=== PATIENT | female | born 1960 | race Caucasian/White ===

== ENCOUNTER 2018-05-26 06:20 | Day surgery (SDC) | payer OTHER ==
[2018-05-26] MEDS ORDERED: Ringers Lactate 1,000 ML IV ONE (07:13)
[2018-05-26] MEDS ORDERED: LIDOCAINE 1% MPF 5 ML VIAL ONE (07:44)
[2018-05-26] MEDS ORDERED: PROPOFOL 200 MG/20 ML VIAL IV ONE (07:44)
--- NOTE | 2018-05-26 08:37 | ENDO RPT ---
[address], [address] COLONOSCOPY PROCEDURE REPORT EXAM DATE: 05/26/2018 PATIENT NAME: Nkechi Busby MR #: [id number] BIRTHDATE: 1960 ATTENDING: Sushil Francis Dr STATUS: outpatient GEOPHYSICAL SUPPORT SPECIALIST: Moira Evans, Azucena Muniz RN, and Lucy Evans INDICATIONS: The patient is a 57 yr old Female here for a colonoscopy due to follow-up of Crohn's disease PROCEDURE PERFORMED: Colonoscopy with biopsy - cold polypectomy and Colonoscopy with biopsy MEDICATIONS: Per Anesthesia. ESTIMATED BLOOD LOSS: None CONSENT: The patient understands the risks and benefits of the procedure and understands that these risks include, but are not limited to: sedation, allergic reaction, infection, perforation and/or bleeding. Alternative means of evaluation and treatment include, among others: physical exam, x-rays, and/or surgical intervention. The patient elects to proceed with this endoscopic procedure. DESCRIPTION OF PROCEDURE: During intra-op preparation period all mechanical medical equipment was checked for proper function. Hand hygiene and appropriate measures for infection prevention was taken. Procedure, possible complications, alternatives including, but not limited to possibility of bleeding, perforation, tear, infection, sepsis, need for surgery, need for blood transfusion, were explained to the patient. After the risks, benefits and alternatives of the procedure were thoroughly explained, Informed consent was verified, confirmed and timeout was successfully executed by the treatment team. The patient was placed in the left lateral position. A digital rectal exam was performed and revealed no abnormalities of the rectum. After appropriate level of anesthesia, the scope was passed. The [id number] ([id number]) endoscope was introduced through the anus and advanced to the terminal ileum which was intubated for a short distance. The quality of the prep was good. The instrument was then slowly withdrawn as the colon was fully examined. Scope withdrawal time was 8 minutes. COLON FINDINGS: A sessile polyp measuring 3 mm in size was found at the cecum. A polypectomy was performed with cold forceps. Mild diverticulosis was noted in the sigmoid colon. Random biopsies of the terminal ileum / right colon / left colon / rectum obtained with history of Crohn's disease. Moderate sized internal hemorrhoids were found. Retroflexed views revealed medium hemorrhoids. The scope was then completely withdrawn from the patient and the procedure terminated. ADVERSE EVENTS: There were no complications. IMPRESSIONS: 1. 3 mm sessile polyp in the cecum; polypectomy was performed with cold forceps 2. Mild diverticulosis in the sigmoid colon 3. Moderate sized internal hemorrhoids 4. Random biopsies of the terminal ileum / right colon / left colon / rectum obtained with history of Crohn's disease 5. Intubation to terminal ileum RECOMMENDATIONS: 1. await biopsy results 2. avoid NSAIDS RECALL: Return in 2 year(s) for Colonoscopy. Sushil Francis Dr eSigned: Sushil Francis Dr 05/26/2018 8:24 AM cc: Bk Alvarez CPT CODES: ICD9 CODES: 211.3 Benign neoplasm of colon PATIENT NAME: Nkechi Busby MR#: [id number]
== END 2018-05-26 09:00 | disposition home or self-care (01) ==
LOC: OR 06:20
PROVIDERS: ATTEND Internal Medicine Gastroenterology
PROC: 0DBP8ZX Excision of Rectum, Via Natural or Artificial Opening Endoscopic, Diagnostic (ICD-10-PCS; 2018-05-26)
PROC: 0DBB8ZX Excision of Ileum, Via Natural or Artificial Opening Endoscopic, Diagnostic (ICD-10-PCS; 2018-05-26)
PROC: 0DBM8ZX Excision of Descending Colon, Via Natural or Artificial Opening Endoscopic, Diagnostic (ICD-10-PCS; 2018-05-26)
PROC: 0DBH8ZX Excision of Cecum, Via Natural or Artificial Opening Endoscopic, Diagnostic (ICD-10-PCS; 2018-05-26)
PROC: 0DBK8ZX Excision of Ascending Colon, Via Natural or Artificial Opening Endoscopic, Diagnostic (ICD-10-PCS; principal; 2018-05-26 08:00)
DX: K50.90 Crohn's disease, unspecified, without complications (principal); Z86.010 Personal history of colon polyps; K76.0 Fatty (change of) liver, not elsewhere classified; I10 Essential (primary) hypertension
CPT/HCPCS: 88305; J2704

== ENCOUNTER 2020-02-14 09:59 | Emergency (ER) | payer OTHER ==
--- OUTSIDE RECORDS SUMMARY | 2020-02-14 11:02 | XMS REPORT ---
:1960 Author Organization eClinicalWorks Care Team Providers Name Role Phone Jamie Whaley Provider Role Unavailable Allergies, Adverse Reactions, Alerts Substance Reaction Event Type Sulfa Info Not Available Drug Allergy Problems Problem Type Condition Code Onset Dates Condition Statu s Assessment Pain in joint of left knee M25.562 A ctive Problem Primary osteoarthritis of left knee M17.12 Active Assessment Primary osteoarthritis of left knee M17.12 Active Medications Medication Code System Code Instructions Start End Date Status Dos age Date Pentasa [facility] 37522-279 Active not defined 1-12 Meloxicam [facility] 32950-933 Active not defined 1-01 Lisinopril-Hydroc [facility] 09391-276 Active not defined hlorothiazide 0-01 Folic Acid [facility] 37698-249 Active not defined 0-01 Methotrexate [facility] 46979-948 Active not defin ed 1-01 Results No Known Results Summary Purpose eClinicalWorks Submission
--- OUTSIDE RECORDS SUMMARY | 2020-02-14 11:02 | XMS REPORT | Continuity of Care Document ---
:1960 Author Organization [facility] t Address [address] [place] [address] Care Team Providers Name Role Phone Unavailable Unavailable Unavailable Problems Condition Condition Condition Status Onset Resolution Last Treating Co mments Source Name Details Category Date Date Treatment Clinician Date Primary Primary Problem Active [facility] Primary Primary Diagnosis [facility] Allergies, Adverse Reactions, Alerts Allergy Allergy Status Severity Reaction(s) Onset Inactive Treating Comm ents Source Name Type Date Date Clinician Sulfa Adverse Active Info Not [facility] Reaction Available [facility] Medications Ordered Filled Start Stop Current Ordering Indication Dosage Frequency Signature Comments Components Source Medication Medication Date Date Medication? Clinician (SIG) Name Name Methotrexat Methotrexat Yes Jamie not [facility] Whaley defined [facility] Lisinopril- Lisinopril- Yes Jamie not [facility] Hydrochloro Hydrochloro Whaley defined [facility] Pentasa Pentasa Yes Jamie not [facility] Whaley [facility] Folic Acid Folic Acid Yes Jamie not [facility] Meloxicam Meloxicam Yes Jamie not [facility] Procedures This patient has no known procedures. Encounters Start End Encounter Admission Attending Care Care Encounter Source Date/Time Date/Time Type Type Clinicians Facility Department ID 2020-01-25 2020-01-25 [facility] [id number] [facility] 15:23[facility] 15[facility]23[facility] 2020-01-18 2020-01-18 [facility] [id number] [facility] 08:30:00 08:30:00 [facility] 2019-12-30 2019-12-30 [facility] [id number] [facility] 14:15:00 14:15:00 [facility] 2019-12-23 2019-12-23 [facility] [id number] [facility] [address] 11:00:00 11:00:00 [facility] 2019-12-16 2019-12-16 [facility] [id number] [facility] 13:30:00 13:30:00 [facility] 2019-11-16 2019-11-16 [facility] [id number] [facility] 09:30:00 09:30:00 [facility] 2019-11-11 2019-11-11 [facility] [id number] [facility] 08:23:00 08:23:00 [facility] 2019-11-01 2019-11-01 [facility] [id number] [facility] 15:38:00 15:38:00 [facility] 2019-10-21 2019-10-21 [facility] [id number] [facility] 08:00:00 08:00:00 [facility] 2019-08-20 2019-08-20 [facility] [id number] [facility] 08[facility]30:00 08:30:00 [facility] 2019-08-05 2019-08-05 Outpatient Milena Fuchs [id number] [facility] 10:27:00 10:27:00 [facility] 2019-08-03 2019-08-03 Outpatient Milena Fuchs [id number] [facility] 10:30:00 10:30:00 [facility] 2019-04-08 2019-04-08 Outpatient Milena Fuchs [id number] [facility] 09:00:00 09:00:00 [facility] Results This patient has no known results.
--- OUTSIDE RECORDS SUMMARY | 2020-02-14 11:02 | XMS REPORT ---
:1960 Author Organization eClinicalWorks Care Team Providers Name Role Phone Jamie Whaley Provider Role Unavailable Allergies, Adverse Reactions, Alerts Substance Reaction Event Type Sulfa Info Not Available Drug Allergy Problems Problem Type Condition Code Onset Dates Condition Statu s Assessment Pain in joint of left knee M25.562 A ctive Problem Primary osteoarthritis of left M17.12 Active knee Assessment Primary osteoarthritis of left M17.12 Active knee Assessment Complex tear of lateral meniscus S83.272A Active of left knee as current injury, initial encounter Medications Medication Code System Code Instructions Start End Date Status Dos age Date Lisinopril-Hydroc [facility] 19390-943 Active not defined hlorothiazide 0-01 Folic Acid [facility] 02065-688 Active not defined 0-01 Methotrexate [facility] 69170-400 Active not defin ed 1-01 Pentasa [facility] 51389-684 Active not defined 1-12 Results No Known Results Summary Purpose [employer] Submission
--- OUTSIDE RECORDS SUMMARY | 2020-02-14 11:02 | XMS REPORT ---
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 knee Assessment Pain in joint of right knee M25.561 Active Assessment Primary osteoarthritis of right M17.11 Active knee Medications Medication Code System Code Instructions Start End Date Status Dos age Date Methotrexate [facility] 28384-623 Active not defin ed 1-01 Pentasa [facility] 56534-931 Active not defined 1-12 Lisinopril-Hydroc [facility] 14413-091 Active not defined hlorothiazide 0-01 Folic Acid [facility] 97299-644 Active not defined 0-01 Meloxicam [facility] 37340-727 Active not defined 1-01 Results No Known Results Summary Purpose eClinicalWorks Submission
--- OUTSIDE RECORDS SUMMARY | 2020-02-14 11:02 | XMS REPORT ---
[...] End Date Status Dos age Date Pentasa [facility] 54477-900 Active not defined 1-12 Lisinopril-Hydroc [facility] 69584-657 Active not defined hlorothiazide 0-01 Methotrexate [facility] 44853-733 Active not defin ed 1-01 Meloxicam [facility] 07735-660 Active not defined 1-01 Folic Acid [facility] 03343-235 Active not defined 0-01 Results No Known Results Summary Purpose eClinicalWorks Submission
--- OUTSIDE RECORDS SUMMARY | 2020-02-14 11:02 | XMS REPORT ---
:1960 Author Organization eClinicalWorks Care Team Providers Name Role Phone Jamie Whaley Provider Role Unavailable Allergies No Known Allergies Problems Problem Type Condition Code Onset Dates Condition Statu s Problem Primary osteoarthritis of left knee M17.12 Active Problem Primary osteoarthritis of right knee M17.11 Active Assessment Primary osteoarthritis of right knee M17.11 Active Medications No Known Medications Results No Known Results Summary Purpose eClinicalWorks Submission
--- OUTSIDE RECORDS SUMMARY | 2020-02-14 11:02 | XMS REPORT ---
[...] End Date Status Dos age Date Pentasa [facility] 14164-227 Active not defined 1-12 Methotrexate [facility] 03005-162 Active not defin ed 1-01 Meloxicam [facility] 02951-494 Active not defined 1-01 Lisinopril-Hydroc [facility] 21758-342 Active not defined hlorothiazide 0-01 Folic Acid [facility] 59833-329 Active not defined 0-01 Results No Known Results Summary Purpose eClinicalWorks Submission
[2020-02-14] MEDS ORDERED: HYDROCODONE/APAP 5/325 MG TAB ONE (12:37)
--- NOTE | 2020-02-14 13:22 | RAD REPORT ---
EXAM DESCRIPTION: USExtrembarbara Venous [facility] Ltd02/14/2020 12:57 pm CLINICAL HISTORY: Right leg pain and swelling. COMPARISON: None. FINDINGS: Right common femoral, superficial femoral, popliteal and right posterior tibial veins are compressible and demonstrate augmentation. Doppler demonstrates good flow. IMPRESSION: No evidence of deep venous thrombosis involving the right lower extremity.
--- NOTE | 2020-02-14 13:32 | EDPHYS ---
Physician Documentation [facility] Name: Nkechi Busby Age: 59 yrs Sex: Female : 1960 Arrival Date: 02/14/2020 Time: 10:00 Bed 17 Private MD: Jose Cool R ED Physician Goyo Hollingsworth HPI: 02/13 12:57 This 59 yrs old Female presents to ER via Ambulatory with complaints of Knee snw Pain, Knee Swelling. 12:57 The patient presents with decreased range of motion, pain, a rash, swelling. The snw complaints affect the right knee. Context: The problem was sustained at home, resulted from an unknown cause, the patient can partially bear weight, Problem is a result from a previous injury: awaiting knee injections for tx chronic knee pain. Onset: The symptoms/episode began/occurred suddenly. Modifying factors: The symptoms are alleviated by nothing. Associated signs and symptoms: Pertinent positives: swelling, warmth. Severity of symptoms: At their worst the symptoms were very mild. The patient has not experienced similar symptoms in the past. The patient has been recently seen by a physician: Sees Dr. Whaley and Dr. Cool. Recent MRI right knee. Historical: - Allergies: 10:29 Sulfa (Sulfonamide Antibiotics); aa5 - PMHx: 10:29 crohns disease; Hypertension; aa5 - PSHx: 10:29 Cholecystectomy; partial hysterectomy; aa5 - Immunization history:: Adult Immunizations. - Social history:: Smoking status: . ROS: 12:56 Constitutional: Negative for fever, chills, and weight loss, Eyes: Negative for injury, snw pain, redness, and discharge, ENT: Negative for injury, pain, and discharge, Neck: Negative for injury, pain, and swelling, Cardiovascular: Negative for chest pain, palpitations, and edema, Respiratory: Negative for shortness of breath, cough, wheezing, and pleuritic chest pain, Abdomen/GI: Negative for abdominal pain, nausea, vomiting, diarrhea, and constipation, Back: Negative for injury and pain, : Negative for injury, bleeding, discharge, and swelling, Skin: Negative for injury, rash, and discoloration, Neuro: Negative for headache, weakness, numbness, tingling, and seizure, Psych: Negative for depression, anxiety, suicide ideation, homicidal ideation, and hallucinations. 12:56 MS/extremity: Positive for pain, swelling, of the right knee. Exam: 12:54 Constitutional: This is a well developed, well nourished patient who is awake, alert, snw and in no acute distress. Head/Face: Normocephalic, atraumatic. Eyes: Pupils equal round and reactive to light, extra-ocular motions intact. Lids and lashes normal. Conjunctiva and sclera are non-icteric and not injected. Cornea within normal limits. Periorbital areas with no swelling, redness, or edema. ENT: Nares patent. No nasal discharge, no septal abnormalities noted. Tympanic membranes are normal and external auditory canals are clear. Oropharynx with no redness, swelling, or masses, exudates, or evidence of obstruction, uvula midline. Mucous membranes moist. Neck: Trachea midline, no thyromegaly or masses palpated, and no cervical lymphadenopathy. Supple, full range of motion without nuchal rigidity, or vertebral point tenderness. No Meningismus. Chest/axilla: Normal chest wall appearance and motion. Nontender with no deformity. No lesions are appreciated. Cardiovascular: Regular rate and rhythm with a normal S1 and S2. No gallops, murmurs, or rubs. Normal PMI, no JVD. No pulse deficits. Respiratory: Lungs have equal breath sounds bilaterally, clear to auscultation and percussion. No rales, rhonchi or wheezes noted. No increased work of breathing, no retractions or nasal flaring. Abdomen/GI: Soft, non-tender, with normal bowel sounds. No distension or tympany. No guarding or rebound. No evidence of tenderness throughout. Back: No spinal tenderness. No costovertebral tenderness. Full range of motion. MS/ Extremity: Pulses equal, no cyanosis. Neurovascular intact. Full, normal range of motion. Neuro: Awake and alert, GCS 15, oriented to person, place, time, and situation. Cranial nerves II-XII grossly intact. Motor strength 5/5 in all extremities. Sensory grossly intact. Cerebellar exam normal. Normal gait. Psych: Awake, alert, with orientation to person, place and time. Behavior, mood, and affect are within normal limits. 12:54 Skin: Appearance: normal except for affected area, skin overlying right knee with a patterned area of erythema, tenderness, no erythema. Vital Signs: 10:30 BP 123 / 87; Pulse 77; Resp 18 S; Temp 97.5(TE); Pulse Ox 98% on R/A; Weight 104.33 kg aa5 (R); Height 5 ft. 2 in. (157.48 cm) (R); Pain 0/10; 13:38 BP 119 / 75; Pulse 63; Resp 17; Pulse Ox 95% on R/A; tw2 10:30 Body Mass Index 42.07 (104.33 kg, 157.48 cm) aa5 MDM: 12:16 Patient medically screened. snw 13:33 Data reviewed: vital signs, nurses notes. Data interpreted: Pulse oximetry: on room air snw is 98 %. Interpretation: normal. Counseling: I had a detailed discussion with the patient and/or guardian regarding: the historical points, exam findings, and any diagnostic results supporting the discharge/admit diagnosis, radiology results, the need for outpatient follow up, to return to the emergency department if symptoms worsen or persist or if there are any questions or concerns that arise at home. Special discussion: Based on the history and exam findings, there is no indication for further emergent testing or inpatient evaluation. I discussed with the patient/guardian the need to see the orthopedic surgeon for further evaluation of the symptoms. I discussed with the patient/guardian the need to see the primary care provider for further evaluation of the symptoms. 02/13 12:21 Order name: US Extremity Venous Unilateral Ltd; Complete Time: 13:29 snw 02/13 13:51 Order name: [place] wrap-joint; Complete Time: 13:58 snw Administered Medications: 12:28 Drug: [place] 5 mg-325 mg 1 tabs Route: PO; tw2 13:38 Follow up: Response: No adverse reaction; Pain is unchanged, physician notified; RASS: tw2 Alert and Calm (0) Disposition: 16:24 Co-signature as Attending Physician, Goyo Hollingsworth MD. rn Disposition: 02/14/20 13:31 Discharged to Home. Impression: Pain in right knee, Rash and other nonspecific skin eruption. - Condition is Stable. - Discharge Instructions: Joint Pain, Rash, Knee Pain, Heat Therapy. - Prescriptions for orphenadrine citrate 100 mg Oral Tablet Sustained Release - take 1 tablet by ORAL route 2 times per day As needed; 20 tablet. - Medication Reconciliation Form, Thank You Letter, Antibiotic Education, Prescription Opioid Use form. - Follow up: Jose Cool MD; When: 2 - 3 days; Reason: Recheck today's complaints, Continuance of care, Re-evaluation by your physician. Signatures: Dispatcher [employer] EDMS Alida Christian, PLASTIC STRAIGHTENING ROLL OPERATOR-C PLASTIC STRAIGHTENING ROLL OPERATOR-Csnw Goyo Hollingsworth MD MD rn Calderon, Audri RN RN aa5 Kya Salinas RN RN tw2 Corrections: (The following items were deleted from the chart) 13:59 13:31 02/14/2020 13:31 Discharged to Home. Impression: Pain in right knee; Rash and tw2 other nonspecific skin eruption. Condition is Stable. Forms are Medication Reconciliation Form, Thank You Letter, Antibiotic Education, Prescription Opioid Use. Follow up: Jose Cool; When: 2 - 3 days; Reason: Recheck today's complaints, Continuance of care, Re-evaluation by your physician. snw
--- NOTE | 2020-02-14 13:32 | ER ---
Nurse's Notes [facility] Name: Nkechi Busby Age: 59 yrs Sex: Female : 1960 Arrival Date: 02/14/2020 Time: 10:00 Bed 17 Private MD: Jose Cool R Diagnosis: Pain in right knee;Rash and other nonspecific skin eruption Presentation: 02/13 10:30 Chief complaint: Patient states: "I have trouble with my knees and they actually did an aa5 MRI recently so the plan is that Dr. Whaley is going to do some gel shots but this morning I noticed a red spot on my right knee and the doctor said to come to the ER". Coronavirus screen: Client denies travel out of the [place] in the last 14 days. At this time, the client does not indicate any symptoms associated with coronavirus-19. Ebola Screen: Patient negative for fever greater than or equal to 101.5 degrees Fahrenheit, and additional compatible Ebola Virus Disease symptoms. Initial Sepsis Screen: Does the patient meet any 2 criteria? No. Patient's initial sepsis screen is negative. Does the patient have a suspected source of infection? No. Patient's initial sepsis screen is negative. Risk Assessment: Do you want to hurt yourself or someone else? Patient reports no desire to harm self or others. Onset of symptoms was February 14, 2020. 10:30 Method Of Arrival: Ambulatory aa5 10:30 Acuity: KONSTANTIN 4 aa5 Historical: - Allergies: 10:29 Sulfa (Sulfonamide Antibiotics); aa5 - PMHx: 10:29 crohns disease; Hypertension; aa5 - PSHx: 10:29 Cholecystectomy; partial hysterectomy; aa5 - Immunization history:: Adult Immunizations. - Social history:: Smoking status: . Screenin:40 Abuse screen: Denies threats or abuse. Nutritional screening: No deficits noted. tw2 Tuberculosis screening: No symptoms or risk factors identified. Fall Risk None identified. Assessment: 11:40 General: Appears in no apparent distress. obese, well groomed, Behavior is calm, tw2 cooperative, appropriate for age. Pain: Complains of pain in right knee. Neuro: Level of Consciousness is awake, alert, obeys commands, Oriented to person, place, time, situation. Cardiovascular: Capillary refill < 3 seconds Patient's skin is warm and dry. Respiratory: Airway is patent Respiratory effort is even, unlabored, Respiratory pattern is regular. GI: No signs and/or symptoms were reported involving the gastrointestinal system. : No signs and/or symptoms were reported regarding the genitourinary system. EENT: No signs and/or symptoms were reported regarding the EENT system. Derm: No signs and/or symptoms reported regarding the dermatologic system. Musculoskeletal: Circulation, motion, and sensation intact. Range of motion: intact in all extremities, Reports pain in right knee. 12:38 Reassessment: Patient appears in no apparent distress at this time. No changes from tw2 previously documented assessment. Patient and/or family updated on plan of care and expected duration. Pain level reassessed. Patient is alert, oriented x 3, equal unlabored respirations, skin warm/dry/pink. 13:38 Reassessment: Patient appears in no apparent distress at this time. No changes from tw2 previously documented assessment. Patient and/or family updated on plan of care and expected duration. Pain level reassessed. Patient is alert, oriented x 3, equal unlabored respirations, skin warm/dry/pink. Patient states symptoms have not improved. 13:58 Reassessment: Patient appears in no apparent distress at this time. No changes from tw2 previously documented assessment. Patient and/or family updated on plan of care and expected duration. Pain level reassessed. Patient is alert, oriented x 3, equal unlabored respirations, skin warm/dry/pink. Vital Signs: 10:30 BP 123 / 87; Pulse 77; Resp 18 S; Temp 97.5(TE); Pulse Ox 98% on R/A; Weight 104.33 kg aa5 (R); Height 5 ft. 2 in. (157.48 cm) (R); Pain 0/10; 13:38 BP 119 / 75; Pulse 63; Resp 17; Pulse Ox 95% on R/A; tw2 10:30 Body Mass Index 42.07 (104.33 kg, 157.48 cm) aa5 ED Course: 10:00 Patient arrived in ED. ag5 10:00 Jose Cool MD is Private Physician. ag5 10:29 Arm band placed on. aa5 10:33 Triage completed. aa5 11:39 Alida Christian F[facility]-C [facility]. snw 11:39 Goyo Hollingsworth MD is Attending Physician. snw 11:40 Kay Salinas, RN is Primary Nurse. tw2 11:40 Bed in low position. Call light in reach. tw2 12:57 US Extremity Venous Unilateral Ltd In Process Unspecified. EDMS 13:31 Jose Cool MD is Referral Physician. snw 13:40 Awaiting: results from provider at this time prior to discharge. tw2 13:59 No provider procedures requiring assistance completed. Patient did not have IV access tw2 during this emergency room visit. Administered Medications: 12:28 Drug: [place] 5 mg-325 mg 1 tabs Route: PO; tw2 13:38 Follow up: Response: No adverse reaction; Pain is unchanged, physician notified; RASS: tw2 Alert and Calm (0) Outcome: 13:31 Discharge ordered by MD. snw 13:59 Discharged to home via wheelchair. tw2 13:59 Condition: stable 13:59 Discharge instructions given to patient, Instructed on discharge instructions, follow up and referral plans. medication usage, Demonstrated understanding of instructions, follow-up care, medications, [facility] checks Prescriptions given X 1. 13:59 Patient left the ED. tw2 Signatures: Dispatcher [employer] EDAR Alida Christian FNP-C COLD WORK OPERATOR-Csnw Vera Mooney, RN RN aa5 Kay Salinas, RN RN tw2 Margaret Whitmore ag5 Corrections: (The following items were deleted from the chart) 13:39 13:38 Reassessment: Patient appears in no apparent distress at this time. No changes tw2 from previously documented assessment. Patient and/or family updated on plan of care and expected duration. Pain level reassessed. Patient is alert, oriented x 3, equal unlabored respirations, skin warm/dry/pink. tw2
== END 2020-02-14 13:59 | disposition home or self-care (01) ==
LOC: ER 09:59
DX: R21 Rash and other nonspecific skin eruption (principal); I10 Essential (primary) hypertension; Z88.2 Allergy status to sulfonamides
CPT/HCPCS: 93971; 99283

== ENCOUNTER 2020-05-04 13:24 | Emergency (ER) | payer OTHER ==
--- OUTSIDE RECORDS SUMMARY | 2020-05-04 13:38 | XMS REPORT | Continuity of Care Document ---
:1960 Author Organization [facility] t Address [address] [place] [address] Care Team Providers Name Role Phone Unavailable Unavailable Unavailable Problems This patient has no known problems. Allergies, Adverse Reactions, Alerts Allergy Allergy Status [...] Date/Time Type Type Clinicians Facility Department ID 2020-03-28 2020-03-28 Outpatient [facility] [id number] [facility] 2020-03-21 2020-03-21 Outpatient [facility] [id number] [facility] 2020-03-14 2020-03-14 Outpatient [facility] [id number] [facility] 2020-02-08 2020-02-08 [facility] [id number] [facility] 12:34[facility]00 12:34[facility]00 [facility] 2020-01-25 2020-01-25 [facility] [id number] 15:23:00 15:23:00 [facility] 2020-01-18 2020-01-18 [facility] [id number] [facility] 08:30:00 08:30:00 [facility] 2019-12-30 2019-12-30 [facility] [id number] 14:15:00 14:15:00 [facility] 2019-12-23 2019-12-23 [facility] [id number] 11:00:00 11:00:00 [facility] 2019-12-16 2019-12-16 [facility] [id number] 13:30:00 13:30:00 [facility] 2019-11-16 2019-11-16 [facility] [id number] 09:30:00 09:30:00 [facility] 2019-11-11 2019-11-11 [facility] [id number] 08[facility]23:00 08:23:00 [facility] 2019-11-01 2019-11-01 [facility] [id number] 15:38:00 15:38:00 [facility] 2019-10-21 2019-10-21 [facility] [id number] 08:00:00 08:00:00 [facility] 2019-08-20 2019-08-20 [facility] [id number] 08:30:00 08:30:00 [facility] 2019-08-05 2019-08-05 [facility] [id number] 10:27:00 10:27:00 [facility] 2019-08-03 2019-08-03 [facility] [id number] 10:30:00 10:30:00 [facility] 2019-04-08 2019-04-08 [facility] [id number] 09:00:00 09:00:00 [facility] Results This patient has no known results.
--- OUTSIDE RECORDS SUMMARY | 2020-05-04 13:38 | XMS REPORT ---
:1960 Author Organization [facility] Address [address], [facility] [address] [place] [address] Care Team Providers Name Role Phone Jamie Whaley Unavailable [phone] PROBLEMS Type Condition ICD9-CM [id number] Onset Condition SNOMED Code Notes Code Code Dates Status Problem Primary M17.12 Active 044986576486185 osteoarthritis of left knee Problem Primary M17.11 Active [id number] osteoarthritis of right knee ALLERGIES Allergen (clinical drug Drug/Non Drug Allergy Reaction Allergy Type Onset Date Status ingredient) documented on EMR Sulfa Unknown Drug Allergy Active ENCOUNTERS from 1960 to 2020-04-03 Encounter Location Date Provider Diagnosis [facility] [address] 13 Mar, 2020 Jamie serrato osteoarthritis [facility] [address] of right kne e [address]17.[address] [place] [address] IMMUNIZATIONS Vaccine Route Administration Date Status Hyalgan 20 mg Unknown Mar 21, 2020 Administered Hyalgan 20 mg Unknown Mar 14, 2020 Administered Hyalgan 20 mg Unknown December 30, 2019 Administered Hyalgan 20 mg Unknown December 23, 2019 Administered Hyalgan 20 mg Unknown December 16, 2019 Administered LIDOCAINE HCL 10MG/ML Unknown Feb 25, 2019 Administer ed Hyalgan 20 mg Unknown Mar 28, 2020 Administered Kenalog (Triamcinolone) Unknown Jan 18, 2020 Administ ered Bupivicaine [place] Unknown August 20, 2019 Administered Kenalog (Triamcinolone) Unknown August 20, 2019 Administ ered Bupivicaine [place] Unknown Jan 18, 2020 Administered Kenalog (Triamcinolone) Unknown Feb 25, 2019 Administ ered SOCIAL HISTORY Tobacco Use: Social History Observation Description Date Details (start date - stop date) Former Smoker Sex Assigned At : Social History Observation Description Sex Assigned At Unknown Alcohol Screen Question Answer Notes Did you have a drink containing alcohol in the past year? No Points 0 Interpretation Negative Tobacco Use/Smoking Question Answer Notes Are you a former smoker Additional Findings: Tobacco Non-User Current non-smoker REASON FOR REFERRAL No Information VITAL SIGNS Height 62 in Mar, Weight 229 lbs Mar, BMI 41.88 kg/m2 Mar, Blood pressure systolic 132 mm Hg Mar, Blood pressure diastolic 82 mm Hg Mar, MEDICATIONS Medication SIG (Take, Route, Frequency, Start Date End Date Status Duration) Meloxicam Active Lisinopril-Hydrochlorothiazide Active Folic Acid Active Methotrexate Active Pentasa Active PROCEDURES No Information RESULTS No Results REASON FOR VISIT F/U RT KNEE 3RD HYALGAN MEDICAL (GENERAL) HISTORY Type Description Date Medical History CROHN'S DISEASE Medical History hypertension Surgical History GALLBLADDER Surgical History HYSTRERECTOMY Surgical History NO METAL Goals Section No Information Health Concerns No Information MEDICAL EQUIPMENT No Information MENTAL STATUS No Information FUNCTIONAL STATUS No Information ASSESSMENTS Encounter Date Diagnosis Notes Mar, Primary osteoarthritis of right knee (IC D-10 - M17.11) PLAN OF TREATMENT Treatment Notes Assessment Notes Clinical Notes Primary osteoarthritis of right knee I discussed with the job lagos at length her diagnosis and treatment plan and she expressed understanding. We will proceed with conservative treatment at this time. We discussed weight management, strengthening exercises, NSAIDs use, and corticosteroid/viscosupplementatio n injections. The patient underwent her 3rd right knee hyalgan injection without complication. The patient was instructed to refrain from strenuous activities for the next 24 hours and to ice the area. She will return to clinic as needed. Next Appt Details prn Reason: Insurance Providers Payer Name Payer Payer Insured Patient Coverage Coverage End Address Phone Name Relationship to Start Date Presley e Insured Community [phone] [place],Vi self 2019 [place] [id number] [facility] [id number]
--- OUTSIDE RECORDS SUMMARY | 2020-05-04 13:38 | XMS REPORT ---
:1960 Author Organization [facility] Address [address], [facility] [address] [place] [address] Care Team Providers Name Role Phone Jamie Whaley Unavailable [phone] PROBLEMS Type Condition ICD9-CM [id number] Onset Condition SNOMED Code Notes Code Code Dates Status Problem Primary M17.12 Active [id number] osteoarthritis of left knee Problem Primary M17.11 Active [id number] osteoarthritis of right knee ALLERGIES Allergen (clinical drug Drug/Non Drug Allergy Reaction Allergy Type Onset Date Status ingredient) documented on EMR Sulfa Unknown Drug Allergy Active ENCOUNTERS from 1960 to 2020-03-27 Encounter Location Date Provider Diagnosis [facility] [address] Mar, 2020 Jamie serrato osteoarthritis [facility] [address] of right kne e M17.[address] [place] [address] IMMUNIZATIONS Vaccine Route Administration Date Status Hyalgan 20 mg Unknown Mar 21, 2020 Administered Hyalgan 20 mg Unknown Mar 14, 2020 Administered Hyalgan 20 mg Unknown December 30, 2019 Administered Hyalgan 20 mg Unknown December 23, 2019 Administered Hyalgan 20 mg Unknown December 16, 2019 Administered LIDOCAINE HCL 10MG/ML Unknown Feb 25, 2019 Administer ed Bupivicaine [place] Unknown August 20, 2019 Administered Kenalog (Triamcinolone) Unknown Jan 18, 2020 Administ ered Bupivicaine [place] Unknown Jan 18, 2020 Administered Kenalog (Triamcinolone) Unknown August 20, 2019 Administ ered Kenalog (Triamcinolone) Unknown Feb 25, 2019 Administ ered SOCIAL HISTORY Tobacco Use: Social History Observation Description Date Details (start date - stop date) Former Smoker Sex Assigned At : Social History Observation Description Sex Assigned At Unknown Alcohol Screen Question Answer Notes Did you have a drink containing alcohol in Yes the past year? Points 2 Interpretation Negative How often did you have 6 or more drinks on Never (0 points) one occasion in the past year? How often did you have a drink containing Two to four times a month (2 points) alcohol in the past year? Tobacco Use/Smoking Question Answer Notes Are you a former smoker Additional Findings: Tobacco Non-User Current non-smoker REASON FOR REFERRAL No Information VITAL SIGNS Height 62 in Mar, Weight 229 lbs Mar, Temperature 97.3 degrees Fahrenheit Mar, BMI 41.88 kg/m2 Mar, Blood pressure systolic 120 mm Hg Mar, Blood pressure diastolic 78 mm Hg Mar, MEDICATIONS Medication SIG (Take, Route, Frequency, Start Date End Date Status Duration) Meloxicam Active Lisinopril-Hydrochlorothiazide Active Folic Acid Active Methotrexate Active Pentasa Active PROCEDURES No Information RESULTS No Results REASON FOR VISIT F/U RT KNEE SECOND HYALGAN MEDICAL (GENERAL) HISTORY Type Description Date [...] corticosteroid/viscosupplementatio n injections. The patient underwent her 2nd right knee hyalgan injection without complication. The patient was instructed to refrain from strenuous activities for the next 24 hours and to ice the area. She will return to clinic in 1 week for her 3rd injection of the series. Next Appt Details 1 Week Reason: Provider Name:Jamie Whaley, 2020-03-28 0 3:30:00 PM, [address], [address], [place], [address], Insurance Providers Payer Name Payer Payer Insured Patient Coverage Coverage End Address Phone Name Relationship to Start Date Presley e Insured Community [phone] Anny Jones self [address] [employer] [id number] [facility] [address]
--- OUTSIDE RECORDS SUMMARY | 2020-05-04 13:38 | XMS REPORT ---
:1960 Author Organization [facility] Address [address], [facility] [[email or web address] 1 [place] [address] Care Team Providers Name Role Phone Jamie Whaley Unavailable [phone] PROBLEMS Type Condition ICD9-CM GGC62-GA Onset Condition SNOMED Code Notes Code Code Dates Status Problem Primary M17.12 Active [id number] osteoarthritis of left knee Problem Primary M17.11 Active [id number] osteoarthritis of right knee ALLERGIES Allergen (clinical drug Drug/Non Drug Allergy Reaction Allergy Type Onset Date Status ingredient) documented on EMR Sulfa Unknown Drug Allergy Active ENCOUNTERS from 1960 to 2020-03-16 Encounter Location Date Provider Diagnosis [facility] [address] Feb, Jamie serrato osteoarthritis [facility] [[email or web address] [address] of right kne e [address]17.[address] [place] [address] IMMUNIZATIONS Vaccine Route Administration Date Status Bupivicaine [place] Unknown August 20, 2019 Administered Hyalgan 20 mg Unknown Mar 14, 2020 Administered Hyalgan 20 mg Unknown December 30, 2019 Administered Hyalgan 20 mg Unknown December 23, 2019 Administered Hyalgan 20 mg Unknown December 16, 2019 Administered LIDOCAINE HCL 10MG/ML Unknown Feb 25, 2019 Administer ed Bupivicaine [place] Unknown Jan 18, 2020 Administered Kenalog (Triamcinolone) Unknown Jan 18, 2020 Administ ered Kenalog (Triamcinolone) Unknown August 20, 2019 Administ [...] No Information VITAL SIGNS Height 62 in Feb, Weight 229 lbs Feb, Temperature 97.3 degrees Fahrenheit Feb, BMI 41.88 kg/m2 Feb, Blood pressure systolic 139 mm Hg Feb, Blood pressure diastolic 76 mm Hg Feb, MEDICATIONS Medication SIG (Take, Route, Frequency, Start Date End Date Status Duration) Folic Acid Active Methotrexate Active Lisinopril-Hydrochlorothiazide Active Pentasa Active Meloxicam Active PROCEDURES No Information RESULTS No Results REASON FOR VISIT 1ST HYALGAN INJECTION MEDICAL (GENERAL) HISTORY Type Description Date Medical History CROHN'S DISEASE Medical History hypertension Surgical History GALLBLADDER Surgical History HYSTRERECTOMY Surgical History NO METAL Goals Section No Information Health Concerns No Information MEDICAL EQUIPMENT No Information MENTAL STATUS No Information FUNCTIONAL STATUS No Information ASSESSMENTS Encounter Date Diagnosis Notes Feb, Primary osteoarthritis of right knee (IC D-10 [...] and corticosteroid/viscosupplementatio n injections. The patient underwent right knee hyalgan injection without complication. The patient was instructed to refrain from strenuous activities for the next 24 hours and to ice the area. She will return to clinic in 1 week for her 2nd injection of the series. Next Appt Details 1 Week Reason: Provider Name:Jamie Whaley 2020-03-21 0 3:30:00 PM, [address], [place], [address], Provider Name:Jamie Whaley 2020-03-28 0 3:30:00 PM, [address], [place], [address], Insurance Providers Payer Name Payer Payer Insured Patient Coverage Coverage End Address Phone Name Relationship to Start Date Presley e Insured Community [phone] Anny Jones self [address] [employer] [id number] [facility] [address]
--- NOTE | 2020-05-04 14:25 | ER ---
Nurse's Notes [facility] Name: Nkechi Busby Age: 59 yrs Sex: Female : 1960 Arrival Date: 05/04/2020 Time: 13:27 Bed 6 Private MD: Jose Cool R Diagnosis: Pain in unspecified lower leg;Dysuria Presentation: 05/04 14:10 Chief complaint: Patient states: I started having some numbness and tingling in my iw legs, a yeast infection, and excessive thirst. I think I might have diabetes. Coronavirus screen: Client denies travel out of the [place] in the last 14 days. Ebola Screen: No symptoms or risks identified at this time. 14:10 Method Of Arrival: Ambulatory iw 14:12 Initial Sepsis Screen: Does the patient meet any 2 criteria? No. Patient's initial iw sepsis screen is negative. Does the patient have a suspected source of infection? No. Patient's initial sepsis screen is negative. Risk Assessment: Do you want to hurt yourself or someone else? Patient reports no desire to harm self or others. Onset of symptoms is unknown. 14:12 Acuity: KONSTANTIN 4 iw Historical: - Allergies: 14:53 Sulfa (Sulfonamide Antibiotics); ll2 - Immunization history:: Adult Immunizations up to date. - Social history:: Smoking status: unknown. Screenin:15 Abuse screen: Denies threats or abuse. Nutritional screening: No deficits noted. ll2 Tuberculosis screening: No symptoms or risk factors identified. Fall Risk None identified. Assessment: 14:50 General: Appears in no apparent distress. Behavior is calm, cooperative, appropriate ll2 for age. Pain: Denies pain. Neuro: Level of Consciousness is awake, alert, obeys commands, Oriented to person, place, time, situation. Cardiovascular: Patient's skin is warm and dry. Respiratory: Airway is patent Respiratory effort is even, unlabored, Respiratory pattern is regular, symmetrical. GI: No signs and/or symptoms were reported involving the gastrointestinal system. : Reports urinary frequency. EENT: No signs and/or symptoms were reported regarding the EENT system. Derm: Skin is intact, slight tenting of skin. Musculoskeletal: Circulation, motion, and sensation intact. Range of motion: intact in all extremities. Vital Signs: 14:12 BP 167 / 84; Pulse 68; Resp 20; Temp 97.9; Pulse Ox 98% on R/A; Weight 103.87 kg (R); iw Height 5 ft. 2 in. (157.48 cm); Pain 0/10; 14:52 BP 167 / 84; Pulse 68; Resp 20; Temp 97.9; Pulse Ox 98% on R/A; ll2 14:12 Body Mass Index 41.88 (103.87 kg, 157.48 cm) ED Course: 13:27 Patient arrived in ED. as 13:28 Jose Cool MD is Private Physician. as 13:57 [facility] Stockton [facility]. m 13:57 Ilya Smith MD is Attending Physician. [facility] 14:00 Patient has correct armband on for positive identification. Call light in reach. Pulse ll2 ox on. NIBP on. 14:12 Triage completed. iw 14:15 Arm band placed on. ll2 14:15 No provider procedures requiring assistance completed. Patient did not have IV access ll2 during this emergency room visit. 14:24 Jose Cool MD is Referral Physician. [facility] Administered Medications: 14:49 Drug: DiFLUcan 150 mg Route: PO; ll2 14:49 Follow up: Response: Medication administered at discharge. ll2 Outcome: 14:24 Discharge ordered by . [facility] 14:55 Discharged to home ambulatory. ll2 14:55 Condition: stable 14:55 Discharge instructions given to patient, Instructed on discharge instructions, follow up and referral plans. medication usage, Demonstrated understanding of instructions, follow-up care, medications, Prescriptions given X 1. 14:55 Patient left the ED. ll2 Signatures: Reza Stockton PA PA Cheyenne Whitney Irene, RN RN iw Sandra Quiros RN RN ll2
--- NOTE | 2020-05-04 14:25 | EDPHYS ---
Physician Documentation [facility] [place] Name: Nkechi Busby Age: 59 yrs Sex: Female : 1960 Arrival Date: 05/04/2020 Time: 13:27 Bed 6 Private MD: Jose Cool R ED Physician Ilya Smith HPI: 05/04 14:10 This 59 yrs old Female presents to ER via Unassigned with complaints of jmm Urinary Frequency, Leg Pain. 14:10 The patient presents with urinary symptoms. Onset: The symptoms/episode began/occurred jmm gradually. Modifying factors: The symptoms are alleviated by nothing, the symptoms are aggravated by nothing. Associated signs and symptoms: Pertinent positives: urinary frequency, Pertinent negatives: fever, vomiting. Patient also complains of ongoing cramping in her feet. Denies injury. Patient states she was sent from Dr. Cool due to increased BGL. . Historical: - Allergies: 14:53 Sulfa (Sulfonamide Antibiotics); ll2 - Immunization history:: Adult Immunizations up to date. - Social history:: Smoking status: unknown. ROS: 14:10 Constitutional: Negative for fever, chills, and weight loss, Cardiovascular: Negative jmm for chest pain, palpitations, and edema, Respiratory: Negative for shortness of breath, cough, wheezing, and pleuritic chest pain, Abdomen/GI: Negative for abdominal pain, nausea, vomiting, diarrhea, and constipation. 14:10 : Positive for urinary symptoms. 14:10 All other systems are negative. Exam: 14:10 Constitutional: This is a well developed, well nourished patient who is awake, alert, jmm and in no acute distress. Head/Face: atraumatic. Eyes: EOMI, no conjunctival erythema appreciated ENT: Moist Mucus Membranes Neck: Trachea midline, Supple Chest/axilla: Normal chest wall appearance and motion. Cardiovascular: Regular rate and rhythm. No edema appreciated Respiratory: Normal respirations, no respiratory distress appreciated Abdomen/GI: Non distended, soft Back: Normal ROM Skin: General appearance color normal MS/ Extremity: Moves all extremities, no obvious deformities appreciated, no edema noted to the lower extremities Neuro: Awake and alert, normal gait Psych: Behavior is normal, Mood is normal, Patient is cooperative and pleasant Vital Signs: 14:12 BP 167 / 84; Pulse 68; Resp 20; Temp 97.9; Pulse Ox 98% on R/A; Weight 103.87 kg (R); iw Height 5 ft. 2 in. (157.48 cm); Pain 0/10; 14:52 BP 167 / 84; Pulse 68; Resp 20; Temp 97.9; Pulse Ox 98% on R/A; ll2 14:12 Body Mass Index 41.88 (103.87 kg, 157.48 cm) iw MDM: 14:03 Patient medically screened. [facility] 14:22 Data reviewed: vital signs, nurses notes. Counseling: I had a detailed discussion with natty the patient and/or guardian regarding: the historical points, exam findings, and any diagnostic results supporting the discharge/admit diagnosis, lab results, the need for outpatient follow up, to return to the emergency department if symptoms worsen or persist or if there are any questions or concerns that arise at home. ED course: Patient is alert and non toxic in appearance in the ED. Patient advised to follow up with pcp for further evaluation of lower leg pain. Equal pulse, warm. Patient is otherwise given strict return precautions. Patient understood and agrees with the plan of care. . 05/04 14:31 Order name: Glucose, Ancillary Testing; Complete Time: 14:37 EDMS Administered Medications: 14:49 Drug: DiFLUcan 150 mg Route: PO; ll2 14:49 Follow up: Response: Medication administered at discharge. ll2 Disposition: 15:10 Co-signature as Attending Physician, Ilya Smith MD I agree with the assessment and yoly plan of care. Disposition: 05/04/20 14:24 Discharged to Home. Impression: Pain in unspecified lower leg, Dysuria. - Condition is Stable. - Discharge Instructions: Dysuria. - Prescriptions for Bactrim DS 800- 160 mg Oral Tablet - take 1 tablet by ORAL route every 12 hours for 7 days; 14 tablet. - Medication Reconciliation Form, Thank You Letter, Antibiotic Education, Prescription Opioid Use form. - Follow up: Jose Cool MD; When: 2 - 3 days; Reason: Recheck today's complaints, Continuance of care, Re-evaluation by your physician. Signatures: Dispatcher [employer] EDMS Ilya Smith MD MD cha Mickail, Joel, PA PA jmm [place], Sandra, RN RN ll2 Corrections: (The following items were deleted from the chart) 14:55 14:24 05/04/2020 14:24 Discharged to Home. Impression: Pain in unspecified lower leg; ll2 Dysuria. Condition is Stable. Forms are Medication Reconciliation Form, Thank You Letter, Antibiotic Education, Prescription Opioid Use. Follow up: Jose Cool; When: 2 - 3 days; Reason: Recheck today's complaints, Continuance of care, Re-evaluation by your physician. natty
[2020-05-04] MEDS ORDERED: FLUCONAZOLE 100 MG TAB ONE (14:56)
[2020-05-04 23:50] VITALS: BP 167/84; TEMP 97.9; O2SAT 98
== END 2020-05-04 14:55 | disposition home or self-care (01) ==
LOC: ER 13:24
DX: R30.0 Dysuria (principal); M79.662 Pain in left lower leg; M79.661 Pain in right lower leg; Z88.2 Allergy status to sulfonamides
CPT/HCPCS: 82947; 99283